=== PATIENT | female | born 1985 | race African-American/Black ===

== ENCOUNTER 2018-04-06 06:49 | Emergency (ER) | payer MEDICAID ==
[~2018-04-06] VITALS: Ht 162.6 cm; Wt 69.0 kg
[2018-04-06] MEDS ORDERED: ACETAMINOPHEN 325MG TABLET PO STA (07:25)
[2018-04-06] MEDS ORDERED: SODIUM CHLORIDE 0.9% 1,000 ML IV ONE (07:25)
[2018-04-06] MEDS ORDERED: ONDANSETRON HCL 4MG/2ML INJ IV STA (07:25)
[2018-04-06 07:59] LABS: CLARITY URINE CLEAR (CLEAR); COLOR URINE DARK YELLOW (YELLOW); KETONES URINE NEGATIVE (NEGATIVE); LEUKOCYTE ESTERASE URINE NEGATIVE (NEGATIVE); NITRITE URINE NEGATIVE (NEGATIVE); OCCULT BLOOD URINE NEGATIVE (NEGATIVE); PROTEIN URINE NEGATIVE (NEGATIVE); SPECIFIC GRAVITY URINE 1.027 (1.005-1.030)
[2018-04-06 08:00] LABS: BASOPHILS % 0.4 % (0.0-2.0); EOSINOPHILS % 0.9 % (0.0-5.0); HEMATOCRIT. 36.5 % (36.0-48.0); HEMOGLOBIN. 12.1 g/dL (12.0-16.0); LYMPHOCYTES % 43.6 % (20.0-50.0); MEAN CORPUSCULAR HEMOGLOBIN 28.3 pg (28.0-32.0); MEAN CORPUSCULAR VOLUME 85.2 fL (81.0-99.0); MEAN PLATELET VOLUME 8.5 fl (7.4-10.4); MONOCYTES % 7.7 % (2.0-8.0); NEUTROPHILS % 47.4 % (40.0-76.0); PLATELET 217 x1000/uL (130-400); RED BLOOD CELL COUNT 4.28 mill/uL (4.2-5.4)
[2018-04-06 08:07] LABS: CHLORIDE 106 mEq/L (98-107); PROTHROMBIN TIME 10.4 sec (9.1-11.1)
[2018-04-06 08:26] LABS: *AMPHETAMINES SCREEN URINE NEGATIVE (NEGATIVE); *BARBITURATES SCREEN URINE NEGATIVE (NEGATIVE); *BENZODIAZEPINES SCREEN URINE NEGATIVE (NEGATIVE); *COCAINE SCREEN URINE NEGATIVE (NEGATIVE); CANNABINOID URINE SCREEN NEGATIVE (NEGATIVE); METHADONE URINE SCREEN NEGATIVE (NEGATIVE); OPIATES URINE SCREEN NEGATIVE (NEGATIVE); PHENCYCLIDINE URINE SCREEN NEGATIVE (NEGATIVE)
[2018-04-06] MEDS ORDERED: KETOROLAC 30MG/ML VIAL IV STA (09:34)
[2018-04-06 10:42] VITALS: BP 124/72
== END 2018-04-06 18:10 | disposition home or self-care (01) ==
LOC: ER 06:49
DX: R10.2 Pelvic and perineal pain (principal); R03.0 Elevated blood-pressure reading, without diagnosis of hypertension; Z88.5 Allergy status to narcotic agent; Z98.890 Other specified postprocedural states
CPT/HCPCS: 36415; 76830; 76856; 80053; 80305; 81003; 81025; 83690; 85025; 85610; 96374; 96375; 99285; J1885; J2405; J7030